=== PATIENT | male | born 1945 | race Caucasian/White ===

== ENCOUNTER 2019-04-20 11:46 | Day surgery (SDC) | payer MEDICARE ==
[~2019-04-20] VITALS: Ht 175.3 cm; Wt 110.0 kg
[2019-04-20] MEDS ORDERED: AMLO-150 PO (13:14)
[2019-04-20] MEDS ORDERED: TRIA1TAB3 PO (13:14)
[2019-04-20] MEDS ORDERED: MILK500C PO (13:24)
[2019-04-20] MEDS ORDERED: ASPI-614 PO (13:24)
[2019-04-20] MEDS ORDERED: MULT-694 PO (13:24)
[2019-04-20] MEDS ORDERED: CINN500C2 PO (13:24)
[2019-04-20] MEDS ORDERED: BETA PROSTATE PO (13:24)
[2019-04-20] MEDS ORDERED: UBID100C41 PO (13:24)
[2019-04-20] MEDS ORDERED: SAW500CA PO (13:24)
[2019-04-20] MEDS ORDERED: OMEG1CAP34 PO (13:24)
[2019-04-20] MEDS ORDERED: ATOR20TA37 PO (13:24)
[2019-04-20] MEDS ORDERED: GLUC1TAB55 PO (13:24)
[2019-04-20] MEDS ORDERED: FLAX10004 PO (13:24)
[2019-04-20] MEDS ORDERED: PSYL0.5215 PO (13:24)
[2019-04-20] MEDS ORDERED: CHOL10003 PO (13:24)
[2019-04-20] MEDS ORDERED: KRIL500C PO (13:24)
[2019-04-20] MEDS ORDERED: ASCO1TAB2 PO (13:24)
[2019-04-20] MEDS ORDERED: LOSA25TA25 PO (13:24)
[2019-04-20] MEDS ORDERED: BILBERRY PO (13:24)
[2019-04-20] MEDS ORDERED: CRAN1CAP13 PO (13:24)
[2019-04-20] MEDS ORDERED: LACT1CAP20 PO (13:24)
[2019-04-20] MEDS ORDERED: FENTANYL PF 100 MCG/2ML ONE (14:55)
[2019-04-20] MEDS ORDERED: MIDAZOLAM 1 MG/ML, 5ML ONE (14:55)
[2019-04-20] MEDS ORDERED: BIVALIRUDIN 250 MG ONE (14:55)
[2019-04-20] MEDS ORDERED: LIDOCAINE-MPF 1%, 5ML ONE (14:55)
[2019-04-20] MEDS ORDERED: TICAGRELOR 90 MG TABLET ONE (14:55)
[2019-04-20] MEDS ORDERED: VERAPAMIL 2.5 MG/ML, 2ML ONE (14:55)
[2019-04-20] MEDS ORDERED: HEPARIN 1,000 UNITS/ML, 10ML ONE (14:56)
[2019-04-20] MEDS ORDERED: LIDOCAINE 2%, 20ML ONE (15:27)
== END 2019-04-20 17:54 | disposition home or self-care (01) ==
LOC: CACL 11:46
PROVIDERS: ATTEND Internal Medicine Cardiovascular Disease
DX: I35.1 Nonrheumatic aortic (valve) insufficiency (principal); I25.10 Atherosclerotic heart disease of native coronary artery without angina pectoris; I11.0 Hypertensive heart disease with heart failure; I50.9 Heart failure, unspecified; E78.5 Hyperlipidemia, unspecified; Z79.82 Long term (current) use of aspirin; Z79.899 Other long term (current) drug therapy; Z87.891 Personal history of nicotine dependence; Z95.0 Presence of cardiac pacemaker; Z82.49 Family history of ischemic heart disease and other diseases of the circulatory system; Z82.3 Family history of stroke; Z82.61 Family history of arthritis
CPT/HCPCS: 93458; 99156; 99157; C1769; C1894; J0583; J1644; J2250; J3010; Q9967

== ENCOUNTER → 2019-04-28 | Outpatient (CLI) | payer MEDICARE, OTHER ==
[2019-04-20 13:00] VITALS: BP 152/69
[~2019-04-28] VITALS: Ht 175.3 cm; Wt 110.0 kg
[~2019-04-28] MED LIST: AMLO-150 PO; ASCO1TAB2 PO; ASPI-614 PO; ATOR20TA37 PO; BETA PROSTATE PO; BILBERRY PO; CHOL10003 PO; CINN500C2 PO; CRAN1CAP13 PO; FLAX10004 PO; GLUC1TAB55 PO; KRIL500C PO; LACT1CAP20 PO; LOSA25TA25 PO; MILK500C PO; MULT-694 PO; OMEG1CAP34 PO; OMNIPAQUE 350 MG/ML, 100ML BOTTLE ONE; PSYL0.5215 PO; SAW500CA PO; SODIUM CHLORIDE 0.9% 1,000 ML IV SCH; TRIA1TAB3 PO; UBID100C41 PO
== END | disposition home or self-care (01) ==
LOC: CFH 11:57
PROVIDERS: ATTEND Thoracic Surgery (Cardiothoracic Vascular Surgery)
DX: I35.1 Nonrheumatic aortic (valve) insufficiency (principal)
CPT/HCPCS: 71275; Q9967

== ENCOUNTER 2019-05-23 04:37 | Inpatient (IN) | payer MEDICARE, OTHER ==
[2019-05-22 13:57] LABS: MICROSCOPIC NOT IND
[2019-05-22 14:04] LABS: BASOPHILS # (AUTO) 0.09 x10^3/uL (0-0.1); BASOPHILS % (AUTO) 1 % (0-1); EOSINOPHILS # (AUTO) 0.23 x10^3/uL (0-0.4); EOSINOPHILS % (AUTO) 3 % (1-7); LYMPHOCYTES # (AUTO) 2.58 x10^3/uL (1-3.4); LYMPHOCYTES % (AUTO) 34 % (22-44); MD NO; MEAN CORPUSCULAR HGB CONC 34.4 g/dL (33.2-36.2); MEAN CORPUSCULAR VOLUME 84.3 fL (81-97); MEAN PLATELET VOLUME 8.8 fL (7.4-10.4); MONOCYTES % (AUTO) 7 % (2-9); NEUTROPHILS # (AUTO) 4.27 x10^3/uL (1.8-6.8); NEUTROPHILS % (AUTO) 56 % (42-75); PLATELET COUNT 342 x10^3/uL (130-400); RED BLOOD COUNT 5.41 x10^6/uL (4.38-5.82); RED CELL DISTRIBUTION WIDTH 13.9 % (9.4-14.8)
[2019-05-22 14:14] LABS: ALANINE AMINOTRANSFERASE 26 U/L (12-78); ANION GAP 5 mmol/L (5-15); CALCIUM 9.4 mg/dL (8.5-10.1); CHLORIDE 108 mmol/L (98-107); INTERNATIONAL NORMALIZED RATIO 1.02 (0.93-1.1); PROTHROMBIN TIME 10.8 Seconds (9.6-11.5)
[2019-05-22 14:17] LABS: ALKALINE PHOSPHATASE 104 U/L (45-117); CREATININE 0.92 mg/dL (0.7-1.3); TOTAL PROTEIN 7.7 g/dL (6.4-8.2)
[~2019-05-23] VITALS: Ht 175.3 cm; Wt 111.7 kg
[~2019-05-23 04:37] MED LIST changes: -OMNIPAQUE 350 MG/ML, 100ML BOTTLE ONE; +SAW1CAPS6 PO; -SODIUM CHLORIDE 0.9% 1,000 ML IV SCH; +VITA1CAP PO; +vitamin d3 PO
[2019-05-23] MEDS ORDERED: ACETAMINOPHEN 325 MG TABLET PO PRN ×2 (05:00→10:00)
[2019-05-23] MEDS ORDERED: DO NOT GIVE MC SCH (05:00)
[2019-05-23] MEDS ORDERED: CHLORHEXIDINE 15 ML UDC MM PRN (05:00)
[2019-05-23] MEDS ORDERED: INSULIN LISPRO 100 UNITS/ML, PEN SQ-INSULIN SCH (05:00)
[2019-05-23 05:06] VITALS: BP_SYST 153; BP_SYST 158; BP_DIAS 61; BP_DIAS 69
[2019-05-23] MEDS ORDERED: MIDAZOLAM 10MG/2 ML ONE (06:41)
[2019-05-23] MEDS ORDERED: FENTANYL PF 250 MCG/5ML ONE ×6 (06:41→10:32)
[2019-05-23] MEDS ORDERED: ROCURONIUM 10MG/ML,5ML ONE (06:44)
[2019-05-23] MEDS ORDERED: PROPOFOL 10 MG/ML, 20ML ONE ×2 (06:44)
[2019-05-23] MEDS ORDERED: EPINEPHRINE 1 MG/ML, 1ML ONE (06:47)
[2019-05-23] MEDS ORDERED: PHENYLEPHRINE 10 MG/ML ONE (06:47)
[2019-05-23] MEDS ORDERED: AMINOCAPROIC ACID 250 MG/ML, 20ML ONE (06:51)
[2019-05-23] MEDS ORDERED: MAGNESIUM SULFATE PMX 2GM/50ML 50 ML ONE (07:12)
[2019-05-23] MEDS ORDERED: ALBUMIN HUMAN 5% 500 ML IV PRN (07:30)
[2019-05-23] MEDS ORDERED: MANNITOL PMX 20% 500 ML IVPB PRN (07:30)
[2019-05-23] MEDS ORDERED: CEFUROXIME 1.5 GM in SODIUM CHLORIDE 0.9% 50 ML IVPB PRN (07:30)
[2019-05-23] MEDS ORDERED: PHENYLEPHRINE 50 MG in SODIUM CHLORIDE 0.9% 245 ML IV PRN ×2 (07:30→09:53)
[2019-05-23] MEDS ORDERED: EPINEPHRINE 5 MG in SODIUM CHLORIDE 0.9% 245 ML IV PRN ×2 (07:30→10:00)
[2019-05-23] MEDS ORDERED: REGULAR INSULIN 100 UNITS in SODIUM CHLORIDE 0.9% 99 ML IV PRN ×2 (07:30→09:53)
[2019-05-23] MEDS ORDERED: VANCOMYCIN 1,700 MG in SODIUM CHLORIDE 0.9% 250 ML IV PRN (07:30)
[2019-05-23] MEDS ORDERED: DEXMEDETOMIDINE 200 MCG in SODIUM CHLORIDE 0.9% 48 ML IV PRN ×2 (07:30→09:53)
[2019-05-23] MEDS ORDERED: POTASSIUM CHLORIDE 80 MEQ, SODIUM BICARBONATE 8.4% 10 MEQ, MAGNESIUM SULFATE 0.5 GM, LI... IV PRN (07:30)
[2019-05-23] MEDS ORDERED: MUPIROCIN OINT 2%, 22GM TP SCH (09:00)
[2019-05-23] MEDS ORDERED: PROTAMINE SULFATE 10 MG/ML, 25ML ONE ×2 (09:00)
[2019-05-23] MEDS: SODIUM CHLORIDE FLUSH 10ML SYR IVF SCH ×3 (09:00→21:17)
[2019-05-23] MEDS: DOCUSATE 100 MG CAPSULE PO SCH ×2 (09:00→21:16)
[2019-05-23] MEDS ORDERED: VASOPRESSIN 20 UNIT in SODIUM CHLORIDE 0.9% 99 ML IV PRN (09:53)
[2019-05-23] MEDS ORDERED: NITROGLYCERIN/D5W PMX 250 ML IV PRN (09:53)
[2019-05-23] MEDS ORDERED: DOBUTAMINE 250 MG in SODIUM CHLORIDE 0.9% 230 ML IV PRN (09:53)
[2019-05-23] MEDS ORDERED: SODIUM CHLORIDE 0.9% 1,000 ML IV PRN (09:53)
[2019-05-23] MEDS ORDERED: PROCHLORPERAZINE 5 MG/ML, 2ML IVPush PRN (10:00)
[2019-05-23] MEDS ORDERED: LACTATED RINGERS 1,000 ML IV PRN (10:00)
[2019-05-23] MEDS: KSCALE TO 4.5 IV SCH ×3 (10:00→22:00)
[2019-05-23] MEDS ORDERED: SODIUM BICARB 8.4%, 50ML SYRINGE IV PRN (10:00)
[2019-05-23] MEDS ORDERED: DEXTROSE 50%, 50ML SYRINGE IVPush PRN (10:00)
[2019-05-23] MEDS ORDERED: BISACODYL 10 MG SUPP PR PRN (10:00)
[2019-05-23] MEDS ORDERED: BISACODYL 5 MG EC TABLET PO PRN (10:00)
[2019-05-23] MEDS ORDERED: FENTANYL PF 100 MCG/2ML IVPush PRN (10:00)
[2019-05-23] MEDS ORDERED: HYDROcodone/APAP 5/325 TABLET PO PRN (10:00)
[2019-05-23] MEDS ORDERED: DEXTROSE 4 GM TAB.CHEW PO PRN (10:00)
[2019-05-23] MEDS ORDERED: ONDANSETRON 2MG/ML, 2ML IVPush PRN (10:00)
[2019-05-23] MEDS ORDERED: INSULIN REGULAR 100 UNITS/ML, 3ML VIAL IVPush PRN (10:00)
[2019-05-23] MEDS ORDERED: ACETAMINOPHEN 650 MG SUPP PR PRN (10:00)
[2019-05-23] MEDS ORDERED: GLUCAGON 1 MG IM PRN (10:00)
[2019-05-23] MEDS ORDERED: HYDROcodone/APAP 10/325 MG TABLET PO PRN (10:00)
[2019-05-23] MEDS ORDERED: MIDAZOLAM 1 MG/ML, 5ML IVPush PRN (10:00)
[2019-05-23] MEDS: INSULIN LISPRO 100 UNITS/ML, PEN SQ-INSULIN SCH ×3 (11:00→20:48)
[2019-05-23 11:14] LABS: GLUCOSE BY BLOOD GAS ANALYZER 158 mg/dL (70-110); POTASSIUM BY BLOOD GAS ANALYZR 3.4 mmol/L (3.6-5.5)
[2019-05-23 11:29] LABS: INTERNATIONAL NORMALIZED RATIO 1.2 (0.93-1.1); PROTHROMBIN TIME 12.7 Seconds (9.6-11.5)
[2019-05-23] MEDS: MAGNESIUM SULFATE 1 GM in SODIUM CHLORIDE 0.9% 100 ML IVPB SCH (11:29)
[2019-05-23] MEDS ORDERED: LIDOCAINE 2%, 20ML ONE (11:29)
[2019-05-23] MEDS ORDERED: methylPREDNISolone SOD SUCC 125 MG/2 ML ONE (11:29)
[2019-05-23] MEDS ORDERED: HEPARIN 1,000 UNITS/ML, 30ML ONE (11:29)
[2019-05-23] MEDS ORDERED: ALBUMIN HUMAN 25% 50 ML ONE (11:29)
[2019-05-23] MEDS ORDERED: SODIUM BICARBONATE 1 MEQ/ML, 50ML VIAL ONE (11:30)
[2019-05-23] MEDS ORDERED: POTASSIUM CHLORIDE 30 MEQ in SODIUM CHLORIDE 0.9% 100 ML IV ONE (13:00)
[2019-05-23] MEDS ORDERED: FENTANYL PF 100 MCG/2ML ONE (15:21)
[2019-05-23] MEDS: CEFUROXIME 1.5 GM in SODIUM CHLORIDE 0.9% 50 ML IVPB SCH (18:18)
[2019-05-23] MEDS: OXYcodone IR 5MG TABLET PO PRN ×2 (18:58→22:11)
[2019-05-23] MEDS: VANCOMYCIN 1,600 MG in SODIUM CHLORIDE 0.9% 250 ML IVPB SCH (19:40)
[2019-05-23] MEDS: MUPIROCIN OINT 2%, 22GM NAS SCH (21:17)
[2019-05-23] MEDS ORDERED: POTASSIUM CHLORIDE PMX 100 ML IV ONE (22:30)
[2019-05-24] MEDS: AMLODIPINE 10 MG TAB PO SCH (02:37)
[2019-05-24] MEDS: OXYcodone IR 5MG TABLET PO PRN (02:38)
[2019-05-24 04:00] VITALS: BP 124/47
[2019-05-24] MEDS: KSCALE TO 4.5 IV SCH (04:00)
[2019-05-24 04:10] LABS: MEAN CORPUSCULAR HEMOGLOBIN 28.5 pg (27.5-34.5); MEAN CORPUSCULAR HGB CONC 33.3 g/dL (33.2-36.2); MEAN CORPUSCULAR VOLUME 85.4 fL (81-97); MEAN PLATELET VOLUME 9.2 fL (7.4-10.4); PLATELET COUNT 266 x10^3/uL (130-400); RED BLOOD COUNT 4.32 x10^6/uL (4.38-5.82); RED CELL DISTRIBUTION WIDTH 14.3 % (9.4-14.8)
[2019-05-24 04:15] LABS: INTERNATIONAL NORMALIZED RATIO 1.02 (0.93-1.1); PROTHROMBIN TIME 10.8 Seconds (9.6-11.5)
[2019-05-24 04:17] LABS: ALBUMIN 3.8 g/dL (3.4-5.0); ANION GAP 8 mmol/L (5-15); CALCIUM 8.4 mg/dL (8.5-10.1); CHLORIDE 111 mmol/L (98-107); CREATININE 1.18 mg/dL (0.7-1.3)
[2019-05-24 04:34] LABS: MD YES
[2019-05-24 04:36] LABS: BANDS%(MANUAL) 4 % (0-7); LYMPHS% (MANUAL) 4 % (22-44); MONOS% (MANUAL) 3 % (2-9); SEGS% (MANUAL) 89 % (42-75)
[2019-05-24 04:37] LABS: <PLATELET ESTIMATE> ADEQUATE; <PLT MORPHOLOGY> NORMAL PLT MORPH; <RBC MORPHOLOGY> NORMAL
[2019-05-24] MEDS ORDERED: POTASSIUM CHLORIDE PMX 100 ML IV ONE (06:00)
[2019-05-24] MEDS: INSULIN LISPRO 100 UNITS/ML, PEN SQ-INSULIN SCH ×4 (07:00→22:40)
[2019-05-24] MEDS: CEFUROXIME 1.5 GM in SODIUM CHLORIDE 0.9% 50 ML IVPB SCH (07:34)
[2019-05-24] MEDS ORDERED: FUROSEMIDE 20 MG/2 ML IV ONE (08:30)
[2019-05-24] MEDS ORDERED: WARFARIN BIOPROSTHETIC VALVE PROTOCOL 2-3 XX SCH (09:00)
[2019-05-24] MEDS: ASPIRIN 81 MG TABLET EC PO SCH (09:21)
[2019-05-24] MEDS: DOCUSATE 100 MG CAPSULE PO SCH ×2 (09:21→22:40)
[2019-05-24] MEDS: SODIUM CHLORIDE FLUSH 10ML SYR IVF SCH ×4 (09:21→22:38)
[2019-05-24] MEDS: VANCOMYCIN 1,600 MG in SODIUM CHLORIDE 0.9% 250 ML IVPB SCH (09:22)
[2019-05-24] MEDS ORDERED: FUROSEMIDE 40 MG/4 ML IV ONE ×2 (09:30→18:00)
[2019-05-24 11:36] VITALS: BP 125/51
[2019-05-24] MEDS: MUPIROCIN OINT 2%, 22GM NAS SCH ×2 (12:08→22:40)
[2019-05-24] MEDS: MAGNESIUM SULFATE 1 GM in SODIUM CHLORIDE 0.9% 100 ML IVPB SCH (12:08)
[2019-05-24] MEDS: TAMSULOSIN 0.4 MG CAP.ER.24H PO SCH (12:08)
[2019-05-24] MEDS: POTASSIUM CHLORIDE 20 MEQ TAB.ER.PRT PO SCH (12:08)
[2019-05-24 14:05] VITALS: BP 143/68
[2019-05-24] MEDS ORDERED: KETOROLAC 30 MG/1 ML IVPush PRN (18:00)
[2019-05-24] MEDS ORDERED: WARFARIN 5 MG TABLET PO-COUM ONE (18:00)
[2019-05-24 19:32] VITALS: BP 144/70
[2019-05-24] MEDS: KETOROLAC 30 MG/1 ML IVPush SCH (22:40)
[2019-05-24] MEDS: CHLORHEXIDINE 15 ML UDC MM SCH (22:40)
[2019-05-25 01:44] VITALS: BP 133/77
[2019-05-25] MEDS: KETOROLAC 30 MG/1 ML IVPush SCH ×4 (03:00→20:59)
[2019-05-25 05:31] LABS: MEAN CORPUSCULAR HEMOGLOBIN 28.8 pg (27.5-34.5); MEAN CORPUSCULAR HGB CONC 33.3 g/dL (33.2-36.2); MEAN CORPUSCULAR VOLUME 86.6 fL (81-97); MEAN PLATELET VOLUME 8.8 fL (7.4-10.4); PLATELET COUNT 219 x10^3/uL (130-400); RED BLOOD COUNT 4.09 x10^6/uL (4.38-5.82); RED CELL DISTRIBUTION WIDTH 14.5 % (9.4-14.8)
[2019-05-25 05:39] LABS: INTERNATIONAL NORMALIZED RATIO 1.01 (0.93-1.1); PROTHROMBIN TIME 10.7 Seconds (9.6-11.5)
[2019-05-25 05:41] LABS: ANION GAP 5 mmol/L (5-15); CALCIUM 8.7 mg/dL (8.5-10.1); CHLORIDE 107 mmol/L (98-107); CREATININE 1.43 mg/dL (0.7-1.3)
[2019-05-25 05:58] LABS: BASOPHILS # (AUTO) 0.04 x10^3/uL (0-0.1); BASOPHILS % (AUTO) 0 % (0-1); EOSINOPHILS % (AUTO) 0 % (1-7); LYMPHOCYTES # (AUTO) 1.58 x10^3/uL (1-3.4); LYMPHOCYTES % (AUTO) 9 % (22-44); MD SCAN; MONOCYTES % (AUTO) 8 % (2-9); NEUTROPHILS # (AUTO) 15.54 x10^3/uL (1.8-6.8); NEUTROPHILS % (AUTO) 84 % (42-75)
[2019-05-25] MEDS: INSULIN LISPRO 100 UNITS/ML, PEN SQ-INSULIN SCH ×4 (07:00→20:57)
[2019-05-25 07:06] VITALS: BP 136/69
[2019-05-25] MEDS: TAMSULOSIN 0.4 MG CAP.ER.24H PO SCH (08:31)
[2019-05-25] MEDS: AMLODIPINE 10 MG TAB PO SCH (08:32)
[2019-05-25] MEDS: MUPIROCIN OINT 2%, 22GM NAS SCH ×2 (08:33→20:59)
[2019-05-25] MEDS: POTASSIUM CHLORIDE 20 MEQ TAB.ER.PRT PO SCH (08:33)
[2019-05-25] MEDS: ASPIRIN 81 MG TABLET EC PO SCH (08:33)
[2019-05-25] MEDS: CHLORHEXIDINE 15 ML UDC MM SCH ×2 (08:33→20:59)
[2019-05-25] MEDS: SODIUM CHLORIDE FLUSH 10ML SYR IVF SCH ×4 (08:34→21:00)
[2019-05-25] MEDS: FUROSEMIDE 40 MG/4 ML IV SCH (08:34)
[2019-05-25] MEDS: DOCUSATE 100 MG CAPSULE PO SCH ×2 (08:34→20:59)
[2019-05-25] MEDS ORDERED: METOPROLOL TARTRATE 25 MG TAB PO ONE (09:30)
[2019-05-25] MEDS: MAGNESIUM SULFATE 1 GM in SODIUM CHLORIDE 0.9% 100 ML IVPB SCH (09:36)
[2019-05-25 13:18] VITALS: BP 120/67
[2019-05-25] MEDS: METOPROLOL TARTRATE 25 MG TAB PO SCH (17:44)
[2019-05-25 19:45] VITALS: BP 134/71
[2019-05-25] MEDS: ATORVASTATIN 20 MG TABLET PO SCH (20:59)
[2019-05-26 01:22] VITALS: BP 148/74
[2019-05-26] MEDS: KETOROLAC 30 MG/1 ML IVPush SCH ×2 (03:26→08:40)
[2019-05-26] MEDS: METOPROLOL TARTRATE 25 MG TAB PO SCH ×2 (05:29→17:38)
[2019-05-26 05:37] LABS: ANION GAP 5 mmol/L (5-15); CALCIUM 8.2 mg/dL (8.5-10.1); CHLORIDE 110 mmol/L (98-107)
[2019-05-26 05:38] LABS: BASOPHILS # (AUTO) 0.18 x10^3/uL (0-0.1); BASOPHILS % (AUTO) 2 % (0-1); CREATININE 0.79 mg/dL (0.7-1.3); EOSINOPHILS # (AUTO) 0.12 x10^3/uL (0-0.4); EOSINOPHILS % (AUTO) 1 % (1-7); LYMPHOCYTES # (AUTO) 1.96 x10^3/uL (1-3.4); LYMPHOCYTES % (AUTO) 17 % (22-44); MD NO; MEAN CORPUSCULAR HEMOGLOBIN 29.1 pg (27.5-34.5); MEAN CORPUSCULAR HGB CONC 33.6 g/dL (33.2-36.2); MEAN CORPUSCULAR VOLUME 86.4 fL (81-97); MEAN PLATELET VOLUME 9.3 fL (7.4-10.4); MONOCYTES # (AUTO) 0.98 x10^3/uL (0.2-0.8); MONOCYTES % (AUTO) 9 % (2-9); NEUTROPHILS # (AUTO) 8.29 x10^3/uL (1.8-6.8); NEUTROPHILS % (AUTO) 72 % (42-75); PLATELET COUNT 185 x10^3/uL (130-400)
[2019-05-26 07:00] VITALS: BP 132/67
[2019-05-26] MEDS: INSULIN LISPRO 100 UNITS/ML, PEN SQ-INSULIN SCH (07:00)
[2019-05-26] MEDS: CHLORHEXIDINE 15 ML UDC MM SCH (08:39)
[2019-05-26] MEDS: MUPIROCIN OINT 2%, 22GM NAS SCH ×2 (08:40→21:04)
[2019-05-26] MEDS: TAMSULOSIN 0.4 MG CAP.ER.24H PO SCH (08:40)
[2019-05-26] MEDS: AMLODIPINE 10 MG TAB PO SCH (08:40)
[2019-05-26] MEDS: FUROSEMIDE 40 MG/4 ML IV SCH (08:40)
[2019-05-26] MEDS: DOCUSATE 100 MG CAPSULE PO SCH ×2 (08:40→21:04)
[2019-05-26] MEDS: POTASSIUM CHLORIDE 20 MEQ TAB.ER.PRT PO SCH (08:40)
[2019-05-26] MEDS: ASPIRIN 81 MG TABLET EC PO SCH (08:40)
[2019-05-26] MEDS: SODIUM CHLORIDE FLUSH 10ML SYR IVF SCH ×4 (08:41→21:30)
[2019-05-26] MEDS ORDERED: METOPROLOL TARTRATE 25 MG TAB PO ONE (09:30)
[2019-05-26 12:36] VITALS: BP 133/63
[2019-05-26 17:37] VITALS: BP 148/74
[2019-05-26 20:12] VITALS: BP 137/70
[2019-05-26] MEDS: ATORVASTATIN 20 MG TABLET PO SCH (21:04)
[2019-05-27 01:13] VITALS: BP 147/68
[2019-05-27 05:01] LABS: ANION GAP 5 mmol/L (5-15); CALCIUM 8.7 mg/dL (8.5-10.1); CHLORIDE 108 mmol/L (98-107)
[2019-05-27 05:12] LABS: BASOPHILS # (AUTO) 0.08 x10^3/uL (0-0.1); BASOPHILS % (AUTO) 1 % (0-1); EOSINOPHILS # (AUTO) 0.28 x10^3/uL (0-0.4); EOSINOPHILS % (AUTO) 3 % (1-7); LYMPHOCYTES # (AUTO) 2.29 x10^3/uL (1-3.4); LYMPHOCYTES % (AUTO) 21 % (22-44); MD NO; MEAN CORPUSCULAR HEMOGLOBIN 28.8 pg (27.5-34.5); MEAN CORPUSCULAR HGB CONC 33.6 g/dL (33.2-36.2); MEAN CORPUSCULAR VOLUME 85.7 fL (81-97); MEAN PLATELET VOLUME 9.4 fL (7.4-10.4); MONOCYTES # (AUTO) 0.75 x10^3/uL (0.2-0.8); MONOCYTES % (AUTO) 7 % (2-9); NEUTROPHILS % (AUTO) 69 % (42-75); PLATELET COUNT 233 x10^3/uL (130-400); RED BLOOD COUNT 4.17 x10^6/uL (4.38-5.82); RED CELL DISTRIBUTION WIDTH 14.4 % (9.4-14.8)
[2019-05-27] MEDS ORDERED: DOCUSATE 100 MG CAPSULE ONE (05:24)
[2019-05-27 05:27] VITALS: BP 147/78
[2019-05-27] MEDS: METOPROLOL TARTRATE 25 MG TAB PO SCH (05:28)
[2019-05-27 07:53] VITALS: BP 145/72
[2019-05-27] MEDS: FUROSEMIDE 40 MG/4 ML IV SCH (08:11)
[2019-05-27] MEDS: TAMSULOSIN 0.4 MG CAP.ER.24H PO SCH (08:11)
[2019-05-27] MEDS: AMLODIPINE 10 MG TAB PO SCH (08:11)
[2019-05-27] MEDS: ASPIRIN 81 MG TABLET EC PO SCH (08:11)
[2019-05-27] MEDS: POTASSIUM CHLORIDE 20 MEQ TAB.ER.PRT PO SCH (08:11)
[2019-05-27] MEDS: SODIUM CHLORIDE FLUSH 10ML SYR IVF SCH (08:12)
[2019-05-27] MEDS: MUPIROCIN OINT 2%, 22GM NAS SCH (08:13)
[2019-05-27] MEDS ORDERED: FURO40TA6 PO (08:49)
[2019-05-27] MEDS ORDERED: METO25TA35 PO (08:49)
[2019-05-27] MEDS ORDERED: POTA20TA6 PO (08:49)
[2019-05-27] MEDS ORDERED: TRAM50TA2 PO (08:49)
[2019-05-27] MEDS ORDERED: TAMS-11 PO (08:49)
[2019-05-27] MEDS ORDERED: DOCUSATE 100 MG CAPSULE PO SCH (09:00)
[2019-05-27] MEDS ORDERED: SIMETHICONE 80 MG CHEW TAB PO SCH (11:00)
== END 2019-05-27 14:01 | disposition home or self-care (01) | DRG 219 ==
LOC: 5SO 04:37 → CCU 08:05 → CSU 15:58 → CCU 16:46 → 5SO 05-24 11:45
PROVIDERS: ADMIT Thoracic Surgery (Cardiothoracic Vascular Surgery); ATTEND Thoracic Surgery (Cardiothoracic Vascular Surgery)
PROC: B24BZZ4 Ultrasonography of Heart with Aorta, Transesophageal (ICD-10-PCS; 2019-05-23)
PROC: 4B02XSZ Measurement of Cardiac Pacemaker, External Approach (ICD-10-PCS; 2019-05-23)
PROC: 5A1221Z Performance of Cardiac Output, Continuous (ICD-10-PCS; 2019-05-23)
PROC: 02RF08Z Replacement of Aortic Valve with Zooplastic Tissue, Open Approach (ICD-10-PCS; principal; 2019-05-23 07:30)
DX: I35.1 Nonrheumatic aortic (valve) insufficiency (principal); N17.0 Acute kidney failure with tubular necrosis; I50.22 Chronic systolic (congestive) heart failure; I11.0 Hypertensive heart disease with heart failure; Z95.0 Presence of cardiac pacemaker
CPT/HCPCS: 36415; 36600; 71045; 71046; 80048; 80053; 81003; 82040; 82330; 82800; 82803; 82810; 82947; 82962; 83036; 83735; 84132; 84295; 85014; 85018; 85025; 85049; 85347; 85610; 85730; 86850; 86900; 86923; 87081; 88305; 93005; 93312; 93321; 93325; 93880; 94002; 94150; C1768; G0378; J0171; J0697; J1644; J1815; J1885; J1940; J2250; J2405; J2704; J2720; J3010; J3370; J3475; J3480; P9045; P9047; C1751; C1760; J2370; J2930; J7050